=== PATIENT | male | born 1950 | race African-American/Black ===

== ENCOUNTER 2016-09-27 15:09 | Emergency (ER) | payer SELFPAY ==
[~2016-09-27] VITALS: Ht 170.2 cm; Wt 72.5 kg
[~2016-09-27 15:09] MED LIST: ALBU6.7H INH; ALBU8I INH; PRED20 PO; ZITH250T PO
[2016-09-27 15:10] VITALS: BP 131/88; PULSE 86; RESP 15; TEMP 98.4; O2SAT 97
[2016-09-27] MEDS ORDERED: ROBA500T PO (15:41)
[2016-09-27] MEDS ORDERED: IBUP-232 PO (15:41)
--- NOTE | 2016-09-27 15:42 | PD ---
HPI Chief Complaint: Back/ Neck Pain or Injury Time Seen by Provider: 15:39 Travel History International Travel<30 days: No Contact w/Intl Traveler<30days: No Traveled to known affect area: No History of Present Illness HPI 65-year-old male presents to emergency Department with complaint of low back pain 2 weeks after picking up and moving heavy concrete flowerpots. Eyes encopresis, incontinence, saddle anesthesias. Denies IV drug use. Denies cancer. Denies fever, chills, nausea, vomiting, abdominal pain. Denies paresthesias, loss of sensation, decreased range of motion, decreased strength to bilateral lower extremities. He is ambulatory with a cane which is normal for him. Has taken Tylenol with minimal relief of pain. Has not taken any other medications or tried any other treatments to alleviate symptoms. Says in the past he has been given Lortab 10 mg which helped with his pain. Does not have an established primary care provider at this time. Reports history of chronic kidney disease. Denies change in urine. No other medical complaints. No other modifying factors or associated signs and symptoms. PFSH Past Medical History Asthma: Yes Heart Rhythm Problems: No Cardiac Catheterization: No Cardiomyopathy: No Cardiovascular Problems: No COPD: Yes Endocrine: No Gastrointestinal Disorders: No Genitourinary: Yes (NOCTURIA) Immune Disorder: No Musculoskeletal: No Neurologic: No Psychiatric: No Reproductive: No Respiratory: Yes (COPD, ASTHMA ) Myocardial Infarction: No Renal Failure: No Past Surgical History Other Surgery: Yes Social History Alcohol Use: No Tobacco Use: No Substance Use: No Allergies-Medications (Allergen,Severity, Reaction): Coded Allergies: *MDRO Multi-Drug Resistant Organism (Verified Adverse Reaction, Unknown, ) 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 Reported Meds & Prescriptions Reported Meds & Active Scripts Active Ibuprofen 600 Mg Tab 600 Mg PO Q8HR PRN Robaxin (Methocarbamol) 500 Mg Tab 500 Mg PO QID PRN Zithromax Z-Alec (Azithromycin) 250 Mg Tab 250 Mg PO DIRECTED Z-Pack Take as directed 2 tabs day one 1 tablet days 2 through 5 Deltasone (Prednisone) 20 Mg Tab 1 Tab PO BID Proventil Hfa (Albuterol Sulfate) 6.7 Gm Aero 2 Puff INH Q4HR NEEDED FOR SHORTNESS OF BREATH Reported Ventolin Hfa (Albuterol Sulfate) 8 Gm Aero 1 Puff INH Q6 * SHAKE WELL BEFORE USE * Review of Systems Except as stated in HPI: all other systems reviewed are Neg Physical Exam Narrative GENERAL: Well-nourished, well-developed elderly, male patient, in no acute distress; afebrile, nontoxic-appearing SKIN: Warm and dry. HEAD: Atraumatic. Normocephalic. EYES: Pupils equal and round. No scleral icterus. No injection or drainage. ENT: Mucosa pink and moist. Airway patent. NECK: Trachea midline. CARDIOVASCULAR: Regular rate and rhythm. No murmur appreciated. RESPIRATORY: No accessory muscle use. Breath sounds clear and equal bilaterally. No retractions or tachypnea. GASTROINTESTINAL: Abdomen soft, non-tender, nondistended. Positive bowel sounds. No hepato-splenomegaly, or palpable masses. No guarding. MUSCULOSKELETAL: Bilateral lower extremities supple and non-tense with 2+ pedal pulses and sensory intact; with full range of motion and 5/5 strength. Active dorsiflexion and extension of bilateral feet. Bilateral straight leg raise is negative for low back pain. Ambulatory with normal gait and assistance with pain in the room. Sitting up in bed at 90. No obvious deformities. No clubbing. No cyanosis. No edema. BACK: No midline point tenderness on palpation of the lumbar thoracic spine. Tenderness on palpation of right paraspinal lumbar area. No obvious deformities. NEUROLOGICAL: Awake and alert. Oriented 3. No obvious cranial nerve deficits. Motor grossly within normal limits. Normal speech. Moves all extremities. 5/5 strength to all extremities. Sensory intact. PSYCHIATRIC: Appropriate mood and affect; insight and judgment normal. Data Data Last Documented VS Vital Signs Date Time Temp Pulse Resp B/P Pulse Ox O2 Delivery O2 Flow Rate FiO2 09/27/16 15:10 98.4 86 15 131/88 97 Orders Ibuprofen (Motrin) (09/27/16 15:45) Methocarbamol (Robaxin) (09/27/16 15:45) MDM Medical Decision Making Medical Screen Exam Complete: Yes Emergency Medical Condition: Yes Medical Record Reviewed: Yes Differential Diagnosis Low back strain, muscle spasm, low back pain Narrative Course 65-year-old male who physical examination consistent with strain of the right lumbar paraspinal muscle. Denies encopresis, incontinence, saddle anesthesias. Denies fever, chills, nausea, vomiting. Denies IV drug use or cancer. Patient is afebrile and nontoxic appearing in the ER. He has no midline point tenderness on palpation of the lumbar or thoracic spine. He is ambulatory in the room with a normal gait with assistance with his cane. He is requesting Lortab 10 mg. Ibuprofen and Robaxin administered in the ER. Ibuprofen and Robaxin prescribed for home. Patient verbalizes understanding and agreement with treatment plan. Patient is medically cleared and stable for discharge. Discussed reasons to return to the emergency department. Instructed patient to follow up with primary care provider. Patient agrees with treatment plan. The patients vital signs are stable and the patient is stable for outpatient follow- up and treatment. Patient discharged home, stable and in no acute distress. Diagnosis Primary Impression: Strain of lumbar paraspinal muscle Qualified Code: S39.012A - Strain of lumbar paraspinal muscle, initial encounter Referrals: Primary Care Physician Patient Instructions: Acute Low Back Pain (ED), General Instructions, Low Back Strain (ED), Lower Back Exercises (ED) Med/Other Pt SpecificInfo: Prescription(s) given Scripts Ibuprofen 600 Mg [id number] Mg PO Q8HR PRN (PAIN) #20 TAB Ref 0 Prov:Olena Gonzalez 09/27/16 Methocarbamol (Robaxin)500 Mg [id number] Mg PO QID PRN (MUSCLE SPASM) #30 TAB Ref 0 Prov:Olena Gonzalez 09/27/16 Disposition: 01 DISCHARGE HOME Condition: Stable Olena Gonzalez Sep 27, 2016 15:42
[2016-09-27] MEDS ORDERED: METHOCARBAMOL 500 MG TAB PO ONE (15:45)
[2016-09-27] MEDS ORDERED: IBUPROFEN 600 MG TAB PO ONE (15:45)
== END 2016-09-27 16:25 | disposition home or self-care (01) ==
LOC: NEPK 15:09
DX: S39.012A Strain of muscle, fascia and tendon of lower back, initial encounter (principal); N18.9 Chronic kidney disease, unspecified; J45.909 Unspecified asthma, uncomplicated; J44.9 Chronic obstructive pulmonary disease, unspecified; X50.0XXA Overexertion from strenuous movement or load, initial encounter; Y93.9 Activity, unspecified; Y92.9 Unspecified place or not applicable; Y99.9 Unspecified external cause status
CPT/HCPCS: 99283